=== PATIENT | female | born 1975 | race Caucasian/White ===

== ENCOUNTER 2020-01-04 09:23 | Emergency (ER) | payer BC, OTHER ==
[2020-01-04 09:55] VITALS: BP 154/85; PULSE 84
--- NOTE | 2020-01-04 10:18 | EDM.PDOC ---
ED HPI GENERAL MEDICAL PROBLEM - General Chief Complaint: Upper Extremity Injury/Pain Stated Complaint: R INDEX FINGER INJURY Time Seen by Provider: 01/04/20 10:11 Source of Information: Reports: Patient, RN Notes Reviewed History Limitations: Reports: No Limitations - History of Present Illness INITIAL COMMENTS - FREE TEXT/NARRATIVE: 44-year-old female presents emergency department a following trauma to her right index finger she accidentally stuck the tip of her finger into the propeller of a drone while at work - Related Data Allergies Allergy/AdvReac Type Severity Reaction Status Date / Time beclomethasone Allergy Cannot Verified 01/04/20 10:01 [Beclomethasone] Remember meperidine HCl [From Demerol] Allergy Hives Verified 01/04/20 10:01 Sulfa (Sulfonamide Allergy Cannot Verified 01/04/20 10:01 Antibiotics) Remember varenicline [Varenicline] Allergy Cannot Verified 01/04/20 10:01 Remember Home Meds: Home Meds estradioL [Estrace] 1.5 mg PO DAILY 10/12/13 [History] traZODone 150 mg PO BEDTIME 10/12/13 [History] Melatonin 15 mg PO BEDTIME 01/30/17 [History] Solifenacin Succinate 10 mg PO BEDTIME 01/04/20 [History] Past Medical History Gastrointestinal History: Reports: Cholelithiasis 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: Musculoskeletal History: Reports: Back Pain, Chronic, Fracture Hematologic History: Reports: None Immunologic History: Reports: None Oncologic (Cancer) History: Reports: None Dermatologic History: Reports: None - Past Surgical History GI Surgical History: Reports: Appendectomy, Cholecystectomy, Colonoscopy Female Surgical History: Reports: Section, Hysterectomy, Oophore ctomy Social & Family History - Tobacco Use Smoking Status *Q: Current Every Day Smoker Years of Tobacco use: 23 Packs/Tins Daily: 0.5 - Caffeine Use Caffeine Use: Reports: Coffee, Soda - Recreational Drug Use Recreational Drug Use: No Review of Systems - Review of Systems Review Of Systems: See Below Musculoskeletal: Reports: Other (Right finger pain) Neurological: Reports: Numbness (Numbness right finger) ED EXAM, GENERAL - Physical Exam Exam: See Below Free Text/Narrative:: Examination of the right finger there it is a small portion of the distal tip right finger missing nailbed is gone approximately 2 mm of subungual tissue is exposed she has full range of motion of digits radial pulses +2 complains of loss of sensation in the distal tip Exam Limited By: No Limitations General Appearance: Alert, WD/WN, No Apparent Distress Course - Vital Signs Last Recorded V/S: Last Vital Signs Temp 97.9 F 01/04/20 10:00 Pulse 84 01/04/20 10:00 Resp 17 01/04/20 10:00 BP 154/85 H 01/04/20 10:00 Pulse Ox 95 01/04/20 10:00 - Orders/Labs/Meds Orders: Active Orders 24 hr Category Date Time Status Ketorolac [Toradol] Med 01/04/20 11:04 Once 30 mg IM ONETIME ONE Medication Orders Ketorolac Tromethamine (Toradol) 30 mg IM ONETIME ONE Stop: 01/04/20 11:05 Meds: Medications Generic Name Dose Route Start Last Admin Trade Name Freq PRN Reason Stop Dose Admin Ketorolac Tromethamine 30 mg 01/04/20 11:04 Toradol IM 01/04/20 11:05 ONETIME ONE Departure - Departure Time of Disposition: 11:05 Disposition: Home, Self-Care 01 Condition: Fair Clinical Impression: Contusion of right index finger with damage to nail Qualifiers: Encounter type: initial encounter Qualified Code(s): S60.121A - Contusion of right index finger with damage to nail, initial encounter - Discharge Information Instructions: Contusion, [id number] Referrals: PCP,None [Primary Care Provider] - Forms: ED Department Discharge, ED Return to Work/School Form Additional Instructions: Use Tylenol or Motrin as needed for pain control, please followup with your primary care provider in 3-5 days if not better, please call return to the emergency department with worsening of symptoms. 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
--- NOTE | 2020-01-04 10:59 | CR ---
Fingers Second Digit Rt F6 CLINICAL HISTORY: Trauma FINDINGS: There is some soft tissue disruption in the distal aspect of the index finger. No fracture is seen. Articular surfaces are smooth Impression: No fracture or dislocation
[2020-01-04] MEDS ORDERED: Ketorolac 30 MG/ML SDV IM ONE (11:04)
== END 2020-01-04 11:25 | disposition home or self-care (01) ==
LOC: JP.ED 09:23
DX: S60.121A Contusion of right index finger with damage to nail, initial encounter (principal); F17.210 Nicotine dependence, cigarettes, uncomplicated; Z88.8 Allergy status to other drugs, medicaments and biological substances; Z88.2 Allergy status to sulfonamides; Z79.899 Other long term (current) drug therapy; W20.8XXA Other cause of strike by thrown, projected or falling object, initial encounter; Y92.89 Other specified places as the place of occurrence of the external cause; Y99.0 Civilian activity done for income or pay
CPT/HCPCS: 73140; 96372; 99001; 99283; J1885

== ENCOUNTER 2021-07-14 08:12 | Day surgery (SDC) | payer BC ==
[2021-07-14] MEDS ORDERED: Glycopyrrolate 0.2 MG/ML 2 ML SDV IVPUSH ONE (09:00)
[2021-07-14] MEDS ORDERED: Dextrose 5%-Lactated Ringers 1,000 ML IV SCH (09:00)
[2021-07-14] MEDS ORDERED: fentaNYL 100 MCG/2 ML SDV ONE (09:56)
[2021-07-14] MEDS ORDERED: Propofol 200 MG/20 ML SDV ONE (09:56)
[2021-07-14] MEDS ORDERED: Midazolam 1 MG/ML 2 ML SDV ONE (09:56)
[2021-07-14 11:34] VITALS: BP 109/83; PULSE 61
[2021-07-16 14:10] LABS: H. PYLORI BREATH TEST Positive (Negative)
== END 2021-07-14 11:49 | disposition home or self-care (01) ==
LOC: JP.SDS 08:12
PROVIDERS: ATTEND Surgery
DX: K29.50 Unspecified chronic gastritis without bleeding (principal); K21.9 Gastro-esophageal reflux disease without esophagitis; K20.0 Eosinophilic esophagitis; K44.9 Diaphragmatic hernia without obstruction or gangrene; F17.200 Nicotine dependence, unspecified, uncomplicated; E66.9 Obesity, unspecified
CPT/HCPCS: 43239; 83013; 87081; J2250; J2704; J3010; J7121; 88305

== ENCOUNTER 2022-09-21 08:16 | Day surgery (SDC) | payer BC ==
[2022-09-21] MEDS ORDERED: Sodium Chloride 0.9% 1,000 ML IV SCH (09:00)
[2022-09-21] MEDS ORDERED: Midazolam 1 MG/ML 2 ML SDV ONE (09:15)
[2022-09-21] MEDS ORDERED: fentaNYL 100 MCG/2 ML SDV ONE (09:15)
[2022-09-21] MEDS ORDERED: Propofol 200 MG/20 ML SDV ONE (09:15)
[2022-09-21 11:54] VITALS: PULSE 77
[2022-09-21 12:02] VITALS: BP 104/68
== END 2022-09-21 12:08 | disposition home or self-care (01) ==
LOC: JP.SDS 08:16
PROVIDERS: ATTEND Surgery
DX: Z12.11 Encounter for screening for malignant neoplasm of colon (principal); K63.5 Polyp of colon; F17.200 Nicotine dependence, unspecified, uncomplicated; Z79.899 Other long term (current) drug therapy; Z88.2 Allergy status to sulfonamides; Z88.6 Allergy status to analgesic agent
CPT/HCPCS: 45385; 88305; J2250; J2704; J3010; J7030

== ENCOUNTER 2024-01-29 15:08 | Emergency (ER) | payer BC ==
[2024-01-29 15:46] LABS: BASOPHILS ABSOLUTE AUTO 0.08 K/uL (0.00-0.10); BASOPHILS PERCENT AUTO 0.8 % (0.1-1.3); EOSINOPHILS ABSOLUTE AUTO 0.35 K/uL (0.00-0.40); EOSINOPHILS PERCENT AUTO 3.7 % (0.0-5.4); HEMATOCRIT 37.2 % (34.3-46.0); HEMOGLOBIN 13.2 g/dL (11.2-15.5); IMMATURE GRAN PERCENT AUTO 0.2 % (0.0-0.7); LYMPHOCYTES ABSOLUTE AUTO 3.14 K/uL (0.8-3.3); LYMPHOCYTES PERCENT AUTO 32.9 % (11.4-47.7); MEAN CORPUSCULAR HGB CONC 35.5 g/dL (31.6-35.5); MEAN CORPUSCULAR VOLUME 87.3 fL (81.4-99.0); MONOCYTES ABSOLUTE AUTO 0.52 K/uL (0.20-0.90); MONOCYTES PERCENT AUTO 5.5 % (3.3-12.6); NEUTROPHILS ABSOLUTE AUTO 5.42 K/uL (1.0-7.6); NEUTROPHILS PERCENT AUTO 56.9 % (40.0-78.1); PLATELET COUNT,PLT 277 K/uL (130-375); RED BLOOD CELL COUNT 4.26 M/uL (3.77-5.24); WHITE BLOOD CELL COUNT,WBC 9.5 K/uL (3.2-11.0)
[2024-01-29] MEDS: HYDROmorphone 1 MG/ML Syringe IVPUSH ONE ×4 (15:46→23:09)
[2024-01-29 15:50] LABS: IMMATURE GRAN ABSOLUTE AUTO 0.02 K/uL (0.00-0.23)
[2024-01-29 16:07] LABS: A/G RATIO 1.1 (1.2-2.2); ALANINE AMINOTRANSFERASE,ALT 25 U/L (12-78); ALBUMIN 3.7 g/dL (3.4-5.0); ALKALINE PHOSPHATASE 62 U/L (46-116); ASPARTATE AMNIOTRANSFERASE,AST 17 U/L (15-37); BILIRUBIN TOTAL 0.3 mg/dL (0.2-1.0); BLOOD UREA NITROGEN,BUN 4 mg/dL (7-18); CALCIUM 8.2 mg/dL (8.5-10.1); CARBON DIOXIDE,CO2 24 mmol/L (21-32); CHLORIDE,CL 101 mmol/L (100-108); CREATININE 0.7 mg/dL (0.6-1.0); ESTIMATED GFR 107 mL/min (>60); GLUCOSE RANDOM 95 mg/dL (74-106); POTASSIUM,K 3.9 mmol/L (3.6-5.2); SODIUM,NA 139 mmol/L (140-148)
[2024-01-29 16:15] LABS: ANION GAP 17.9 mmol/L (5.0-14.0)
[2024-01-29 16:30] LABS: APPEARANCE,URINE CLEAR (CLEAR); BILIRUBIN,URINE NEGATIVE (NEGATIVE); COLOR,URINE YELLOW (YELLOW); GLUCOSE,URINE NEGATIVE (NEGATIVE); KETONES,URINE NEGATIVE (NEGATIVE); LEUKOCYTE ESTERASE,URINE NEGATIVE (NEGATIVE); NITRITE,URINE NEGATIVE (NEGATIVE); OCCULT BLOOD,URINE SMALL (NEGATIVE); PH,URINE 6.5 (5.0-8.0); PROTEIN,URINE NEGATIVE (NEGATIVE); UROBILINOGEN,URINE 0.2 EU/dL (0.2-1.0)
[2024-01-29 16:38] LABS: EPITHELIAL CELLS,URINE FEW; WBC,URINE 0-5 (0-5)
[2024-01-29 16:39] LABS: AMORPHOUS SEDIMENT,URINE NOT SEEN; BACTERIA,URINE RARE; MUCUS,URINE NOT SEEN
[2024-01-29] MEDS: HYDROmorphone 1 MG/ML Syringe IVPUSH STA (18:50)
[2024-01-29] MEDS: Tamsulosin 0.4 MG Cap.ER PO ONE (18:53)
[2024-01-29] MEDS: Sodium Chloride 0.9% 1,000 ML IV SCH (18:53)
[2024-01-29] MEDS: Tamsulosin 0.4 MG Cap.ER ONE (18:53)
[2024-01-29] MEDS: Lidocaine 4% Top Soln 50 ML Bottle MUCMEM ONE (19:28)
[2024-01-29] MEDS: Ondansetron 4 MG/2 ML SDV IVPUSH ONE (19:46)
[2024-01-29] MEDS: Nicotine 14 MG/24 Hr Patch TRDERM ONE (19:58)
[2024-01-29 21:48] VITALS: PULSE 81
[2024-01-29 22:58] VITALS: BP 119/68
== END 2024-01-29 23:30 ==
LOC: JP.ED 15:08
DX: K56.609 Unspecified intestinal obstruction, unspecified as to partial versus complete obstruction (principal); Z86.16 Personal history of COVID-19; Z90.49 Acquired absence of other specified parts of digestive tract; Z90.710 Acquired absence of both cervix and uterus; F17.210 Nicotine dependence, cigarettes, uncomplicated; Z79.899 Other long term (current) drug therapy; Z88.2 Allergy status to sulfonamides; Z88.8 Allergy status to other drugs, medicaments and biological substances
CPT/HCPCS: 36415; 74018; 74176; 80053; 81001; 83605; 83690; 85025; 96361; 96374; 96376; 99285; A9270; J1170; J7030